=== PATIENT | male | born 1950 ===

== ENCOUNTER 2016-12-11 10:33 | Emergency (ER) | payer MEDICARE, OTHER ==
--- NOTE | 2016-12-11 12:58 | C.PDOC ---
History Of Present Illness 66-year-old male, presents to the emergency department with complaints of a cyst that was removed from testicles. Patient notes he had stitches placed, and one of them opened. Patient was seen in doctors office for pain, swelling and bleeding from site, who sent him to ED for further evaluation. No other complaints. Time Seen by Provider: 12/11/16 11:24 Chief Complaint (Nursing): Male Genitourinary History Per: Patient History/Exam Limitations: no limitations Onset/Duration Of Symptoms: Days Current Symptoms Are (Timing): Still Present Severity: Moderate Past Medical History Reviewed: Historical Data, Nursing Documentation, Vital Signs Vital Signs: Last Vital Signs Temp 98.1 F 12/11/16 10:47 Pulse 87 12/11/16 10:47 Resp 16 12/11/16 10:47 BP 140/86 12/11/16 10:47 Pulse Ox 98 12/11/16 10:47 - Medical History PMH: Cardia Arrhythmia (TACHYCARDIA), HTN, Hypercholesterolemia, TIA (JANUARY 2015) Family History: States: No Known Family Hx - Social History Hx Alcohol Use: No Hx Substance Use: No Review Of Systems Except As Marked, All Systems Reviewed And Found Negative. Constitutional: Negative for: Fever Respiratory: Negative for: Cough, Shortness of Breath Gastrointestinal: Negative for: Nausea, Vomiting Genitourinary: Positive for: Scrotal Pain Physical Exam - Physical Exam Appears: Non-toxic, No Acute Distress Skin: Warm, Dry, No Rash Eye(s): bilateral: Normal Inspection, PERRL Neck: Normal ROM Cardiovascular: Rhythm Regular, No Murmur Respiratory: Normal Breath Sounds, No Accessory Muscle Use Gastrointestinal/Abdominal: Soft, No Tenderness Male Genital: Other (Scrotum: There is a 2cm incision to left testicle that is bleeding, (+)wound dehiscence. Tender to palpation w/ surrounding erythema.) Extremity: Normal ROM ED Course And Treatment O2 Sat by Pulse Oximetry: 98 Medical Decision Making Medical Decision Making: Plan: * CMP * CBC, PTT, PT * Reassess and Disposition - Scribe Statement The provider has reviewed the documentation as recorded by the Scribe (Trinh Hare) All medical record entries made by the Scribe were at my direction and personally dictated by me. I have reviewed the chart and agree that the record accurately reflects my personal performance of the history, physical exam, medical decision making, and the department course for this patient. I have also personally directed, reviewed, and agree with the discharge instructions and disposition.
[2016-12-11 13:24] LABS: BASO # 0.1 K/uL (0.0-0.2); BASO % 0.9 % (0.0-2.0); EOS # 0.6 K/uL (0.0-0.7); EOS % 5.9 % (0.0-4.0); HEMATOCRIT 43.3 % (35.0-51.0); LYMPH # 1.6 K/uL (1.0-4.3); LYMPH % 15.9 % (20.0-40.0); MEAN CELL VOLUME 92.6 fL (80.0-94.0); MEAN CORPUSCULAR HGB CONC 34.5 g/dL (33.0-37.0); MEAN PLATELET VOLUME 8.6 fL (7.2-11.7); MONO # 0.6 K/uL (0.0-0.8); MONO % 6.6 % (0.0-10.0); NRBC % 0.1 % (0.0-2.0); RED CELL DISTRIBUTION WIDTH 12.9 % (11.5-14.5); WHITE BLOOD COUNT 9.8 K/uL (4.8-10.8)
--- NOTE | 2016-12-11 13:25 | C.PDOC ---
History Of Present Illness 66-year-old male, presents to the emergency department with complaints of a cyst that was removed from testicles. Patient notes he had stitches placed, and one of them opened. Patient was seen in doctors office for pain, swelling and bleeding from site, who sent him to ED for further evaluation. No other complaints. Time Seen by Provider: 12/11/16 11:24 Chief Complaint (Nursing): Male Genitourinary History Per: Patient History/Exam Limitations: no limitations Onset/Duration Of Symptoms: Days Current Symptoms Are (Timing): Still Present Severity: Moderate Past Medical History Reviewed: Historical Data, Nursing Documentation, Vital Signs Vital Signs: Last Vital Signs Temp 98.2 F 12/11/16 14:11 Pulse 70 12/11/16 14:11 Resp 18 12/11/16 14:11 BP 147/87 12/11/16 14:11 Pulse Ox 98 12/11/16 14:40 - Medical History PMH: Cardia Arrhythmia (TACHYCARDIA), HTN, Hypercholesterolemia, TIA (JANUARY 2015) Family History: States: No Known Family Hx - Social History Hx Alcohol Use: No Hx Substance Use: No Review Of Systems Except As Marked, All Systems Reviewed And Found Negative. Constitutional: Negative for: Fever, Chills Respiratory: Negative for: Shortness of Breath Gastrointestinal: Negative for: Nausea, Vomiting Skin: Negative for: Rash Physical Exam - Physical Exam Appears: Non-toxic, No Acute Distress Skin: Warm, Dry, No Rash Neck: Normal ROM Chest: Symmetrical Cardiovascular: Rhythm Regular, No Murmur Respiratory: Normal Breath Sounds, No Accessory Muscle Use Gastrointestinal/Abdominal: Soft, No Tenderness Male Genital: Testicular Tenderness, Scrotal Swelling, Other (Scrotum: There is a 2cm incision to left testicle that is bleeding, (+)wound dehiscence. Tender to palpation w/ surrounding erythema.) Extremity: Normal ROM Neurological/Psych: Oriented x3, Normal Speech ED Course And Treatment ECG: Interpreted By Me, Viewed By Me ECG Rhythm: R BBB ECG Interpretation: No Acute Changes Rate From EC O2 Sat by Pulse Oximetry: 98 (on RA) Medical Decision Making Medical Decision Making: Plan: CMP CBC, PTT, PT Reassess and Disposition Case discussed w/ Dr Madrigal patient is scheduled for surgical debridement, recommends to change patients abx and have patient f/u Disposition - Disposition Referrals: Chris Madrigal Jr., MD [Staff Provider] - Disposition: HOME/ ROUTINE Disposition Time: 14:33 Condition: GOOD Additional Instructions: Follow up with Dr. Madrigal, you have surgery scheduled on 12/15/16. Return if worsened. Prescriptions: Acetaminophen [Tylenol] 325 mg PO Q6 PRN #30 tab PRN Reason: Pain, Mild (1-3) traMADol [Ultram] 50 mg PO Q6 PRN #20 tab PRN Reason: Pain Instructions: Testicle Pain (ED) Print Language: OCCITAN - PA / CUSTOMER EXPERIENCE STRATEGIST / Resident Statement MD/DO has reviewed & agrees with the documentation as recorded. - Scribe Statement The provider has reviewed the documentation as recorded by the Scribe (Fred Hare) All medical record entries made by the Scribe were at my direction and personally dictated by me. I have reviewed the chart and agree that the record accurately reflects my personal performance of the history, physical exam, medical decision making, and the department course for this patient. I have also personally directed, reviewed, and agree with the discharge instructions and disposition.
[2016-12-11 13:31] LABS: CHLORIDE 97 mmol/L (98-107); POTASSIUM 3.7 mmol/L (3.6-5.2); SODIUM 136 mmol/L (132-148)
[2016-12-11 13:33] LABS: BILIRUBIN,TOTAL 0.7 mg/dL (0.2-1.3); GFR AFRICAN-AMERICAN > 60
[2016-12-11 13:34] LABS: ALKALINE PHOSPHATASE 96 U/L (38-126); ALT/SGPT 22 U/L (21-72); AST/SGOT 26 U/L (17-59); BLOOD UREA NITROGEN 11 mg/dL (9-20); CALCIUM 9.5 mg/dl (8.6-10.4); CARBON DIOXIDE 29 mmol/L (22-30); GLUCOSE,RANDOM 104 mg/dL (75-110)
[2016-12-11 13:47] LABS: INR 1.1
[2016-12-11 14:13] VITALS: BP 147/87; PULSE 70; RESP 18; TEMP 98.2
[2016-12-11 14:35] VITALS: O2SAT 98
== END 2016-12-11 14:45 | disposition home or self-care (01) ==
LOC: C.ER 10:33
DX: N50.812 Left testicular pain (principal); I10 Essential (primary) hypertension; Z86.73 Personal history of transient ischemic attack (TIA), and cerebral infarction without residual deficits

== ENCOUNTER 2016-12-15 07:45 | Day surgery (SDC) | payer MEDICARE, OTHER ==
[2016-12-14 07:24] VITALS: BMI 24.7
[2016-12-15] MEDS ORDERED: Bacitracin 50,000 UNIT in Sodium Chloride 0.9% Irrig 1,000 ML IR SCH (09:39)
[2016-12-15] MEDS ORDERED: Gentamicin 160 MG in Sodium Chloride 0.9% 100 ML IVPB ONE (10:00)
[2016-12-15] MEDS ORDERED: Lactated Ringer's 1,000 ML IV ONE (10:20)
[2016-12-15] MEDS ORDERED: Propofol 10 mg/ml Inj (20 ML) ONE (10:25)
[2016-12-15] MEDS ORDERED: Bacitracin 500 Units/gm Oint Foilpak UD ONE (10:28)
[2016-12-15] MEDS ORDERED: Bupivacaine HCl 0.5% PF (10 ml) Inj ONE ×2 (10:28)
[2016-12-15] MEDS ORDERED: Lidocaine 1% Inj (20ml) ONE (10:28)
[2016-12-15] MEDS ORDERED: ceFAZolin IV 2 gm in Dextrose 1 GM/50 ML BAG IVPB ONE (10:28)
--- NOTE | 2016-12-15 11:10 | PCM.SURG1 ---
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
[2016-12-15] MEDS ORDERED: HYDROmorphone 0.5 mg/0.5 ml ISec IVP PRN (11:29)
[2016-12-15] MEDS ORDERED: Lactated Ringer's 1,000 ML IV SCH (11:30)
[2016-12-15 14:44] VITALS: BP 127/67; PULSE 66; RESP 20; TEMP 98; O2SAT 98
--- NOTE | 2017-01-18 09:27 | OP ---
PREOPERATIVE DIAGNOSES: Scrotal gangrene and wound dehiscence. POSTOPERATIVE DIAGNOSES: Scrotal gangrene and wound dehiscence. PROCEDURE: Evacuation of hematoma, debridement of scrotal skin, and secondary closure. SPECIMEN: Necrotic skin and hematoma. ESTIMATED BLOOD LOSS: 5 mL of clotted blood. DESCRIPTION OF PROCEDURE: As follows, the patient was asked to sign the detailed informed consent prior to the procedure. He was aware of all the risks and complications of the procedure and then other procedures maybe necessary. He agreed to the risks and was brought into the room and draped and prepped in the usual manner. A timeout was taken according to the rules and regulations of [facility]. The wound was explored. The wound was fully opened and the hematoma was evacuated from the scrotum. The area was irrigated with copious antibiotic solution until all clotted elements were removed. There was no active bleeding. The scrotal skin was then debrided removing all necrotic gangrenous tissue and once this had been done, further irrigation was carried out. Meticulous hemostasis was achieved. The wound was then closed in a 2-layer fashion closing the dartos fascia with 3-0 chromic sutures and after placing several large 3-0 Prolene stay sutures. The skin was then closed with chromic sutures in a discontinuous fashion and then the retention sutures were tied resulting in an excellent wound closure. The patient tolerated the procedure well. Dry sterile dressing with a compression was placed on the scrotum using a scrotal support. The patient was sent to the recovery room in good condition. Chris Madrigal MD
== END 2016-12-15 13:20 | disposition home or self-care (01) ==
LOC: C.SDS 07:45
PROVIDERS: ATTEND Urology
DX: T81.30XA Disruption of wound, unspecified, initial encounter (principal); N99.840 Postprocedural hematoma of a genitourinary system organ or structure following a genitourinary system procedure; N49.3 Fournier gangrene; N49.2 Inflammatory disorders of scrotum; I10 Essential (primary) hypertension; E78.5 Hyperlipidemia, unspecified; N40.0 Benign prostatic hyperplasia without lower urinary tract symptoms
CPT/HCPCS: 10140; 11006; 87070; 87181; 88305; J0690; J1170; J1580; J2704; J3010; J7120